=== PATIENT | female | born 1945 | race Caucasian/White ===

== ENCOUNTER 2019-09-03 06:38 | Emergency (ER) | payer MEDICARE, OTHER ==
[~2019-09-03] VITALS: Ht 162.6 cm; Wt 72.6 kg
[~2019-09-03 06:38] MED LIST: FLEXERIL PO; GABAPENTIN600 M1 PO; NORCO 5-325 TA1 EACH PO; ONDANSETRON HCL4 M3 PO; PHENERGAN 25 MG25 MG PO; PREMPRO 0.3 MG1 EACH PO; PRILOSEC OTC20 MG PO; TRAZODONE HCL50 MG PO; ULTRAM 50MG TAB50 MG PO
[2019-09-03] MEDS ORDERED: MELOXICAM7.5 MG PO (06:52)
[2019-09-03 07:49] LABS: ABSOLUTE EOSINOPHILS 0.1 thou/uL (0.0-0.7); ABSOLUTE LYMPHOCYTES 1.9 thou/uL (0.8-5.3); ABSOLUTE MONOCYTES 0.9 thou/uL (0.0-1.2); ABSOLUTE NEUTROPHILS 5.9 thou/uL (1.6-8.1); BASOPHILS 0.3 %; EOSINOPHILS 0.8 %; HEMATOCRIT 36.9 % (37.0-47.0); HEMOGLOBIN 12.5 gm/dL (12.0-15.0); LYMPHOCYTES 21.9 %; MCH 28.9 pg (26.0-34.0); MONOCYTES 10.6 %; MPV 7.3 fl. (7.2-11.1); NUCLEATED RBCS 0 /100WBC; PLATELET COUNT* 251 thou/uL (150-400); POLYS 66.4 %; RBC 4.34 mil/uL (4.20-5.00); RDW-CV 13.5 % (10.5-14.5); WBC 8.8 thou/uL (4.0-11.0)
[2019-09-03 08:01] LABS: CREATININE 0.8 mg/dL (0.6-1.3)
[2019-09-03 08:04] LABS: INR 1.1; PROTIME 10.8 Seconds (9.20-11.50)
[2019-09-03 08:05] LABS: ALBUMIN 3.4 g/dL (3.4-5.0); TOTAL BILIRUBIN 0.7 mg/dL (<0.1-1.0); TOTAL PROTEIN 6.2 g/dL (6.4-8.2)
[2019-09-03] MEDS ORDERED: ZOFRAN ODT4 MG PO (09:55)
[2019-09-03] MEDS ORDERED: CARAFATE 1 GM TA1 GM PO (09:55)
[2019-09-03] MEDS ORDERED: HYDROCODON-ACE1 EAC7 PO (09:55)
[2019-09-03 10:15] VITALS: BP 123/67
--- NOTE | 2019-09-03 16:51 | EKG ---
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[place] : 1945 Requested By: Anabell Groves Order Number: [id number] : Yohannes Smith Measurements Intervals [place] Rate: 65 P: 50 TN: 164 QRS: 12 QRSD: 90 T: 20 QT: 413 QTc: 430 Interpretive Statements Sinus rhythm Abnormal R-wave progression, early transition Compared to ECG 10/03/2011 11:19:46 No significant changes Electronically Signed On 09-03-2019 16:50:21 [employer] by Yohannes Smith [email or web address] <ELECTRONICALLY SIGNED> By: Yohannes Smith MD, [facility] 09/03/19 1650 0729 0729 Yohannes Smith MD, [facility] /EPI
== END 2019-09-03 10:17 | disposition home or self-care (01) ==
LOC: M.ERS 06:38
PROVIDERS: Personal Emergency Response Attendant
DX: K52.9 Noninfective gastroenteritis and colitis, unspecified (principal); M79.7 Fibromyalgia; Z90.89 Acquired absence of other organs; Z90.49 Acquired absence of other specified parts of digestive tract; Z96.653 Presence of artificial knee joint, bilateral; Z90.710 Acquired absence of both cervix and uterus

== ENCOUNTER 2019-09-03 23:57 | Inpatient (IN) | payer MEDICARE, OTHER ==
[~2019-09-03] VITALS: Ht 162.6 cm; Wt 75.3 kg
[~2019-09-03 23:57] MED LIST changes: +CARAFATE 1 GM TA1 GM PO; +HYDROCODON-ACE1 EAC7 PO; +MELOXICAM7.5 MG PO; +ZOFRAN ODT4 MG PO
[2019-09-04 00:10] VITALS: BP 149/78
[2019-09-04 01:50] LABS: ABSOLUTE EOSINOPHILS 0.3 thou/uL (0.0-0.7); ABSOLUTE LYMPHOCYTES 1.4 thou/uL (0.8-5.3); ABSOLUTE MONOCYTES 1.2 thou/uL (0.0-1.2); BASOPHILS 0.1 %; EOSINOPHILS 2.3 %; HEMATOCRIT 39.2 % (37.0-47.0); HEMOGLOBIN 13.4 gm/dL (12.0-15.0); LYMPHOCYTES 12.9 %; MCHC 34.2 g/dL (28.0-37.0); MCV 84.9 fL (80.0-100.0); MONOCYTES 10.9 %; MPV 7.5 fl. (7.2-11.1); NUCLEATED RBCS 0 /100WBC; PLATELET COUNT* 245 thou/uL (150-400); POLYS 73.8 %; RBC 4.62 mil/uL (4.20-5.00); RDW-CV 13.8 % (10.5-14.5); WBC 10.9 thou/uL (4.0-11.0)
[2019-09-04 02:16] LABS: CALCIUM 8.6 mg/dL (8.5-10.1); CREATININE 0.9 mg/dL (0.6-1.3); POTASSIUM 3.9 mmol/L (3.5-5.1)
[2019-09-04 02:22] LABS: ALBUMIN 3.7 g/dL (3.4-5.0); TOTAL PROTEIN 6.7 g/dL (6.4-8.2)
[2019-09-04 04:32] LABS: URINE BILIRUBIN NEGATIVE (Negative); URINE BLOOD NEGATIVE (Negative); URINE CLARITY CLEAR; URINE COLOR YELLOW; URINE GLUCOSE-RANDOM NEGATIVE (Negative); URINE KETONES 1+ (Negative); URINE LEUKOCYTES-REFLEX NEGATIVE (Negative); URINE NITRITE-REFLEX NEGATIVE (Negative); URINE PROTEIN NEGATIVE (Negative); URINE UROBILINOGEN 0.2 E.U./dl (0.2-1.0)
[2019-09-04 07:22] VITALS: BP 120/69
[2019-09-04 16:00] VITALS: BP 112/66
--- NOTE | 2019-09-04 21:44 | NUR ---
I ASSUMED CARE OF THE PATIENT AN ADMISSION FROM THE ED AT 1000. BED IS IN THE LOW LOCKED POSITION AND CALL LIGHT IS IN REACH. HOURLY ROUNDING IS COMPLETED AND PATIENT NEEDS ARE MET. PAIN IS MANAGED WITH PRN MEDS. SHE IS ALERT AND ORIENTED X4 AND HAS AN NG TUBE TO LIS. CANNISTER WAS REPLACED JUST BEFORE ARRIVING ON THE UNIT AND JUST BEFORE THE END OF SHIFT (SO 2000 OUT TODAY). IT IS GETTING DARKER THE DAY GOES ON. FLUIDS ARE INFUSING. WILL CONTINUE TO MONITOR. PATIENT WAS SEEN BY GI [facility].
[2019-09-05 01:40] VITALS: BP 145/64
--- NOTE | 2019-09-05 05:02 | NUR ---
PT RESTED WELL THROUGHOUT HOURLY ROUNDS NG INTACT WITH GREENISH-BROWN OUTPUT , PAIN MEDICATION REQUESTED. DENIES NAUSEA, ABD SOFT WITH DISTENION NOTED. IV FLUIDS INFUSING WELL PER PUMP, UP TO BR WITH STANDBY ASSIST. WILL CONITNUE WITH CURRENT PLAN OF CARE AND WILL REPORT CHANGES.
[2019-09-05 06:11] LABS: HEMATOCRIT 35.5 % (37.0-47.0); MCH 29.1 pg (26.0-34.0); MCHC 33.9 g/dL (28.0-37.0); MCV 85.9 fL (80.0-100.0); MPV 7.4 fl. (7.2-11.1); RBC 4.13 mil/uL (4.20-5.00); RDW-CV 13.8 % (10.5-14.5); WBC 5.8 thou/uL (4.0-11.0)
[2019-09-05 06:26] LABS: ALBUMIN 3.1 g/dL (3.4-5.0); CALCIUM 7.6 mg/dL (8.5-10.1); CREATININE 0.8 mg/dL (0.6-1.3); MAGNESIUM 1.8 mg/dL (1.8-2.4); TOTAL BILIRUBIN 0.6 mg/dL (<0.1-1.0); TOTAL PROTEIN 5.8 g/dL (6.4-8.2)
[2019-09-05 07:30] VITALS: BP 116/75
[2019-09-05 16:00] VITALS: BP 134/71
--- NOTE | 2019-09-05 19:54 | NUR ---
PT ALERT AND ORIENTED. VSS ON RA. NG TO LT NARE. PT ON STB ASSIST. ICE CHIPS PROVIDED NEEDED. PAIN MEDS AND NAUSEA MEDS GIVEN THIS SHIFT. NO BM NOTED THIS SHIFT. PT NOT PASSING FLATUS YET. ABD DISCOMFORT NOTED. CALL LIGHT WITHIN REACH. HOURLY ROUNDINGS MADE. WILL CONTINUE TO MONITOR.
[2019-09-05 20:00] VITALS: BP 105/59
[2019-09-06 04:57] LABS: CALCIUM 7.4 mg/dL (8.5-10.1); CREATININE 0.8 mg/dL (0.6-1.3); MAGNESIUM 1.9 mg/dL (1.8-2.4); POTASSIUM 3.8 mmol/L (3.5-5.1)
--- NOTE | 2019-09-06 18:44 | NUR ---
I ASSUMED CARE OF THE PATIENT AT 0700. SHE IS ALERT AND ORIENTED X4 AND IS UP AD NOVA. BED IS IN THE LOW LOCKED POSITION AND CALL LIGHT IS IN REACH. HOURLY ROUNDING IS COMPLETED AND PATIENT NEEDS ARE MET. PAIN IS MANAGED WITH PRN MEDS. SHE IS HAVING LOTS OF BOWEL MOVEMENTS ON HER OWN AND HAS REFUSED THE MAG CITRATE. DR HERRERA REMOVED THE NG TUBE AND DR MAYS HAS GIVEN ORDERS FOR PATIENT TO D/C IV. WILL CONTINUE TO MONITOR.
[2019-09-06 20:30] VITALS: BP 123/67
[2019-09-07 04:13] LABS: CALCIUM 8.8 mg/dL (8.5-10.1); CREATININE 0.8 mg/dL (0.6-1.3); POTASSIUM 3.8 mmol/L (3.5-5.1)
--- NOTE | 2019-09-07 06:33 | NUR ---
PT SLEPT FAIRLY WELL OVERNIGHT. TOLERATED DINNER SHE STATES WITHOUT N/V.UP INDEP IN ROOM. NO BMS REPORTED OVERNIGHT. NO IV ACCESS. AM LABS. VSS. HOPEFUL FOR DISCHARGE HOME TODAY. ABLE TO USE CALL LITE AND MAKE NEEDS KNOWN.
[2019-09-07 08:15] VITALS: BP 116/70
[2019-09-07] MEDS ORDERED: ZOFRAN ODT4 MG PO (09:19)
[2019-09-07] MEDS ORDERED: MIRALAX119 GM PO (09:19)
[2019-09-07 10:15] VITALS: BP 123/67
--- NOTE | 2019-09-07 12:25 | NUR ---
PATIENT DISCHARGED TO HOME. DISCHARGE PAPERS REVIEWED AND SIGNED. PRESCRIPTIONS TRANSMITTED TO PHARMACY AND INFORMATION SHEETS GIVEN. NO IV. PATIENT DENIES ANY FURTHER NEEDS. PTIENT TAKEN BY WHEELCHAIR TO EXIT. LEFT WITH DAUGHTER.
== END 2019-09-07 12:25 | disposition home or self-care (01) | DRG 389 ==
LOC: M.ERS 23:57 → M.TBA-ER 09-04 04:54 → M.3W 09-04 04:54
PROVIDERS: Emergency Medicine; Internal Medicine; ADMIT Internal Medicine
PROC: 0D9670Z Drainage of Stomach with Drainage Device, Via Natural or Artificial Opening (ICD-10-PCS; principal; 2019-09-04)
DX: K56.609 Unspecified intestinal obstruction, unspecified as to partial versus complete obstruction (principal); F11.20 Opioid dependence, uncomplicated; K21.9 Gastro-esophageal reflux disease without esophagitis; G62.9 Polyneuropathy, unspecified; M79.7 Fibromyalgia; G89.29 Other chronic pain; K59.09 Other constipation; Z96.659 Presence of unspecified artificial knee joint; Z79.899 Other long term (current) drug therapy; Z80.3 Family history of malignant neoplasm of breast; Z80.0 Family history of malignant neoplasm of digestive organs; Z86.010 Personal history of colon polyps; Z90.49 Acquired absence of other specified parts of digestive tract; Z90.710 Acquired absence of both cervix and uterus; Z23 Encounter for immunization